=== PATIENT | female | born 1990 | race Caucasian/White ===

== ENCOUNTER 2019-03-30 14:03 | Emergency (ER) | payer OTHER ==
[2019-03-30] MEDS ORDERED: KETOROLAC 60 MG/2 ML VIAL IM STA (14:34)
[2019-03-30] MEDS ORDERED: PROMETHAZINE 25 MG/1 ML VIAL IM STA (14:34)
--- NOTE | 2019-03-30 14:41 | ED Physician Documentation ---
History of Present Illness - Stated complaint Stated Complaint: DIZZINESS,JANG - Chief complaint Chief Complaint: Allergic Rx - History obtained from History obtained from: Patient - History of Present Illness Timing: Today Pain level max: 7 Pain level now: 7 Improved by: nothing Worsened by: light, sound - Additonal information Additional information: 29-year-old female presents to the emergency department stating that she has chronic migraine headaches. Saw her neurologist yesterday, her propanolol was increased from 40 mg twice a day to 80 mg twice a day. She feels lightheaded and dizzy now. Also feels tired and weak. She states her normal heart rate is in the 80s. Her heart rate today is in the 50s. She also states that she has her usual chronic headache. Did not take her headache medication. No fevers. Some nausea but no vomiting. She denies any possibility of . She is not breast-feeding. No trauma. 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 : None Musculoskeletal: None Derm: None - Past Surgical History Past Surgical History: Yes HEENT: Tonsil/Adenoidectomy - Present Medications Home Medications: Ambulatory Orders Medication Instructions Recorded Confirmed Esomeprazole Magnesium [Nexium 22.3 mg 10/28/14 02/18/15 24Hr] Ondansetron Odt [Zofran Odt] 4 mg 10/28/14 02/18/15 Sertraline HCl [Zoloft] 02/18/15 02/18/15 LORazepam [Ativan] 0.5 - 1 mg PO Q8HR PRN #14 tablet 02/19/15 - Allergies Allergies/Adverse Reactions: Allergies Allergy/AdvReac Type Severity Reaction Status Date / Time No Known Drug Allergies Allergy Verified 03/30/19 14:06 - Social History Does the pt smoke?: No Smoking Status: Never smoker Does the pt drink ETOH?: Yes Does the pt have substance abuse?: No - Immunizations Immunizations are current?: Yes - POLST Patient has POLST: No PD ED PE NORMAL - Vitals Vital signs reviewed: Yes - General General: Alert and oriented X 3, No acute distress, Well developed/nourished - HEENT HEENT: Atraumatic, PERRL, Ears normal, Moist mucous membranes, Pharynx benign - Neck Neck: Supple, no meningeal sign, No bony TTP - Cardiac Cardiac: RRR, Strong equal pulses - Respiratory Respiratory: No respiratory distress, Clear bilaterally - Abdomen Abdomen: Soft, Non tender, Non distended - Derm Derm: Warm and dry - Extremities Extremities: No edema - Neuro Neuro: Alert and oriented X 3, 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 We will have her decrease her propanolol to 40 mg twice a day. We will have her follow-up with her doctor for further care. No evidence of subarachnoid hemorrhage. No evidence of tumor. Patient counseled regarding signs and symptoms for which I believe and urgent re-evaluation would be necessary. Patient with good understanding of and agreement to plan and is comfortable going home at this time This document was made in part using voice recognition software. While efforts are made to proofread this document, sound alike and grammatical errors may occur. Departure - Departure Disposition: 01 Home, Self Care Clinical Impression: Medication side effect Headache Qualifiers: Headache type: unspecified Headache chronicity pattern: chronic headache Intractability: not intractable Qualified Code(s): R51 - Headache Condition: Good Instructions: ED Headache Migraine Follow-Up: BARRY LOPEZ PA-C [Primary Care Provider] - Within 1 week Comments: Decrease your propranolol back to 40 mg by mouth twice a day. This should alleviate the dizziness and tired feeling that you are having. Follow-up with your doctor for further care. Discharge Date/Time: 03/30/19 15:23
[2019-03-30 15:23] VITALS: BP 130/82
== END 2019-03-30 15:23 | disposition home or self-care (01) ==
LOC: ED 14:03
DX: R51 Headache (principal); R42 Dizziness and giddiness; R53.1 Weakness; R11.0 Nausea; T44.7X5A Adverse effect of beta-adrenoreceptor antagonists, initial encounter; I10 Essential (primary) hypertension
CPT/HCPCS: 96372; 99283; 99284